=== PATIENT | female | born 1935 | race Caucasian/White ===

== ENCOUNTER 2018-11-30 11:56 | Inpatient (IN) | payer MEDICARE ==
[2018-11-30] MEDS ORDERED: BISA10SU11 RC (12:24)
[2018-11-30] MEDS ORDERED: POLY17PO4 PO (12:24)
[2018-11-30] MEDS ORDERED: FLUT16SP BNOSTRILS (12:24)
[2018-11-30] MEDS ORDERED: MAGN400O6 PO (12:24)
[2018-11-30] MEDS ORDERED: HYDR-4384 PO (12:24)
[2018-11-30] MEDS ORDERED: ACET-868 PO (12:24)
[2018-11-30] MEDS ORDERED: TAMS-12 PO (12:24)
[2018-11-30] MEDS ORDERED: CLON0.5T PO (12:24)
[2018-11-30] MEDS ORDERED: ANAS1TAB8 PO (12:24)
[2018-11-30] MEDS ORDERED: ISOS30TA6 PO (12:24)
[2018-11-30] MEDS ORDERED: IPRA3AMP23 IH (12:24)
[2018-11-30] MEDS ORDERED: SILD20TA2 PO (12:24)
[2018-11-30] MEDS ORDERED: APIX2.5T PO (12:24)
[2018-11-30] MEDS ORDERED: DOCU-141 PO (12:24)
[2018-11-30] MEDS ORDERED: FERR325T23 PO (12:24)
[2018-11-30] MEDS ORDERED: CARV3.122 PO (12:24)
[2018-11-30] MEDS ORDERED: LEVO88TA5 PO (12:24)
[2018-11-30] MEDS ORDERED: NA P133E RC (12:24)
[2018-11-30] MEDS ORDERED: NITR0.4T48 SL (12:24)
[2018-11-30] MEDS ORDERED: FOLI0.8T23 PO (12:24)
[2018-11-30] MEDS ORDERED: DICL100G16 TP (12:24)
[2018-11-30] MEDS ORDERED: TRAM50TA2 PO (12:24)
[2018-11-30] MEDS ORDERED: SODI88SP18 BNOSTRILS (12:24)
[2018-11-30] MEDS ORDERED: BUME1TAB34 PO (12:24)
[2018-11-30] MEDS ORDERED: HYDR-4076 PO (12:24)
[2018-11-30] MEDS ORDERED: HYDR-4354 PO (12:24)
[2018-11-30] MEDS ORDERED: ACETAMINOPHEN 325 MG TABLET PO PRN (14:00)
[2018-11-30] MEDS ORDERED: Z GUARD REMEDY 2 OZ OINT TP PRN (14:00)
[2018-11-30] MEDS ORDERED: ONDANSETRON HCL/PF 4 MG/2 ML VIAL IVP PRN (14:00)
[2018-11-30] MEDS ORDERED: ZOLPIDEM TARTRATE 5 MG TABLET PO PRN (14:00)
[2018-11-30] MEDS ORDERED: MAGNESIUM HYDROXIDE 30 ML UDC PO PRN ×2 (14:00→17:00)
[2018-11-30] MEDS ORDERED: HYDROCODONE/APAP 5/325MG 1 EACH TABLET PO PRN (14:00)
[2018-11-30] MEDS ORDERED: MAG HYDROX/AL HYDROX/SIMETH 30 ML UDC PO PRN (14:00)
[2018-11-30] MEDS ORDERED: NA PHOS,M-B/NA PHOS,DI-BA 1 EA ENEMA RC PRN (17:00)
[2018-11-30] MEDS ORDERED: NITROGLYCERIN 0.4 MG/TAB BOTTLE SL PRN (17:00)
[2018-11-30] MEDS ORDERED: TRAMADOL HCL 50 MG TABLET PO PRN (17:00)
[2018-11-30] MEDS ORDERED: hydrALAZINE HCL 25 MG TABLET PO PRN (17:00)
[2018-11-30] MEDS ORDERED: SALINE NASAL SPRAY 0.65% 1 BOTTLE BOTTLE NS PRN (17:00)
[2018-11-30] MEDS: DOCUSATE SODIUM 100 MG CAPSULE PO SCH (17:41)
[2018-11-30] MEDS: FERROUS SULFATE (325 MG) 325 MG/TAB TABLET PO SCH (17:41)
[2018-11-30] MEDS: CARVEDILOL 3.125 MG TABLET PO SCH (17:42)
[2018-11-30] MEDS ORDERED: FUROSEMIDE 40 MG/4 ML VIAL IV ONE (18:00)
[2018-11-30] MEDS: VIT B CMPLX 3/FA/VIT C/BIOTIN 1 TAB TABLET PO SCH (18:14)
[2018-11-30] MEDS ORDERED: IPRATROPIUM NEB FS 0.5 MG/2.5 ML AMPUL.NEB NEB SCH ×2 (18:30)
[2018-11-30] MEDS ORDERED: FLUTICASONE PROPIONATE 16 GM BOTTLE NS PRN (19:00)
[2018-11-30] MEDS: APIXABAN 2.5 MG TABLET PO SCH (19:12)
[2018-11-30] MEDS: SILDENAFIL CITRATE 20 MG TABLET PO SCH (20:11)
[2018-11-30] MEDS: clonazePAM 0.5 MG TABLET PO SCH (20:11)
[2018-11-30] MEDS ORDERED: ENOXAPARIN SODIUM 30 MG/0.3 ML DISP.SYRIN SQ SCH (21:00)
[2018-11-30] MEDS: TAMSULOSIN 0.4 MG CAP.SR.24H PO SCH (22:41)
[2018-12-01] MEDS: PANTOPRAZOLE 40 MG TABLET.DR PO SCH (08:17)
[2018-12-01] MEDS: LEVOTHYROXINE SODIUM 88 MCG TABLET PO SCH (08:17)
[2018-12-01] MEDS: BISACODYL SUPP (10 MG) 10 MG/SUPP.RECT SUPP.RECT RC SCH (08:18)
[2018-12-01] MEDS: FUROSEMIDE 40 MG/4 ML VIAL IV SCH (08:18)
[2018-12-01] MEDS: SILDENAFIL CITRATE 20 MG TABLET PO SCH ×3 (08:18→17:23)
[2018-12-01] MEDS: clonazePAM 0.5 MG TABLET PO SCH ×2 (08:18→21:12)
[2018-12-01] MEDS: POLYETHYLENE GLYCOL 3350 17 GM POWD.PACK PO SCH (08:19)
[2018-12-01] MEDS: ANASTROZOLE 1 MG TABLET PO SCH (08:19)
[2018-12-01] MEDS: ISOSORBIDE MONONITRATE (30MG) 30 MG TAB.SR.24H PO SCH (08:19)
[2018-12-01] MEDS: CARVEDILOL 3.125 MG TABLET PO SCH ×2 (08:19→17:24)
[2018-12-01] MEDS: APIXABAN 2.5 MG TABLET PO SCH ×2 (08:23→17:25)
[2018-12-01] MEDS: ALBUTEROL FS 2.5 MG/0.5 ML VIAL.NEB NEB SCH ×2 (11:27→20:19)
[2018-12-01] MEDS: IPRATROPIUM NEB FS 0.5 MG/2.5 ML AMPUL.NEB NEB SCH ×2 (11:27→20:19)
[2018-12-01] MEDS: FERROUS SULFATE (325 MG) 325 MG/TAB TABLET PO SCH (17:23)
[2018-12-01] MEDS: VIT B CMPLX 3/FA/VIT C/BIOTIN 1 TAB TABLET PO SCH (17:23)
[2018-12-01] MEDS: DOCUSATE SODIUM 100 MG CAPSULE PO SCH (17:23)
[2018-12-01] MEDS: CLOTRIMAZOLE 1% 15 GM TUBE TP SCH (20:49)
[2018-12-01] MEDS: TAMSULOSIN 0.4 MG CAP.SR.24H PO SCH (21:12)
[2018-12-01] MEDS: MUPIROCIN OINT 2% 22 GM TUBE SCH (21:12)
[2018-12-02] MEDS: CEPHALEXIN MONOHYDRATE 250 MG CAPSULE PO SCH ×4 (00:36→17:13)
[2018-12-02] MEDS: IPRATROPIUM NEB FS 0.5 MG/2.5 ML AMPUL.NEB NEB SCH ×2 (07:30→20:13)
[2018-12-02] MEDS: ALBUTEROL FS 2.5 MG/0.5 ML VIAL.NEB NEB SCH ×2 (07:30→20:13)
[2018-12-02] MEDS: LEVOTHYROXINE SODIUM 88 MCG TABLET PO SCH (07:53)
[2018-12-02] MEDS: PANTOPRAZOLE 40 MG TABLET.DR PO SCH (07:53)
[2018-12-02] MEDS: POLYETHYLENE GLYCOL 3350 17 GM POWD.PACK PO SCH (08:13)
[2018-12-02] MEDS: ISOSORBIDE MONONITRATE (30MG) 30 MG TAB.SR.24H PO SCH (08:14)
[2018-12-02] MEDS: BISACODYL SUPP (10 MG) 10 MG/SUPP.RECT SUPP.RECT RC SCH (08:15)
[2018-12-02] MEDS: SILDENAFIL CITRATE 20 MG TABLET PO SCH ×3 (08:15→17:14)
[2018-12-02] MEDS: clonazePAM 0.5 MG TABLET PO SCH ×2 (08:15→21:26)
[2018-12-02] MEDS: CARVEDILOL 3.125 MG TABLET PO SCH ×2 (08:16→17:00)
[2018-12-02] MEDS: ANASTROZOLE 1 MG TABLET PO SCH (08:16)
[2018-12-02] MEDS: FUROSEMIDE 40 MG/4 ML VIAL IV SCH (08:20)
[2018-12-02] MEDS: APIXABAN 2.5 MG TABLET PO SCH ×2 (08:26→17:15)
[2018-12-02] MEDS: MUPIROCIN OINT 2% 22 GM TUBE SCH ×2 (08:27→21:27)
[2018-12-02] MEDS: CLOTRIMAZOLE 1% 15 GM TUBE TP SCH ×2 (08:27→17:19)
[2018-12-02] MEDS: NEOMY SULF/BACITRAC ZN/POLY 15 GM TUBE TP SCH (12:53)
[2018-12-02] MEDS: DOCUSATE SODIUM 100 MG CAPSULE PO SCH (17:13)
[2018-12-02] MEDS: VIT B CMPLX 3/FA/VIT C/BIOTIN 1 TAB TABLET PO SCH (17:14)
[2018-12-02] MEDS: FERROUS SULFATE (325 MG) 325 MG/TAB TABLET PO SCH (17:14)
[2018-12-02] MEDS: TAMSULOSIN 0.4 MG CAP.SR.24H PO SCH (21:26)
[2018-12-03] MEDS: CEPHALEXIN MONOHYDRATE 250 MG CAPSULE PO SCH ×4 (00:16→17:42)
[2018-12-03] MEDS: ALBUTEROL FS 2.5 MG/0.5 ML VIAL.NEB NEB SCH ×2 (07:11→19:53)
[2018-12-03] MEDS: IPRATROPIUM NEB FS 0.5 MG/2.5 ML AMPUL.NEB NEB SCH ×2 (07:11→19:52)
[2018-12-03] MEDS: FUROSEMIDE 40 MG/4 ML VIAL IV SCH (08:19)
[2018-12-03] MEDS: LEVOTHYROXINE SODIUM 88 MCG TABLET PO SCH (08:19)
[2018-12-03] MEDS: clonazePAM 0.5 MG TABLET PO SCH ×2 (08:19→21:12)
[2018-12-03] MEDS: BISACODYL SUPP (10 MG) 10 MG/SUPP.RECT SUPP.RECT RC SCH (08:19)
[2018-12-03] MEDS: PANTOPRAZOLE 40 MG TABLET.DR PO SCH (08:20)
[2018-12-03] MEDS: ISOSORBIDE MONONITRATE (30MG) 30 MG TAB.SR.24H PO SCH (08:20)
[2018-12-03] MEDS: ANASTROZOLE 1 MG TABLET PO SCH (08:20)
[2018-12-03] MEDS: CARVEDILOL 3.125 MG TABLET PO SCH ×2 (08:20→17:00)
[2018-12-03] MEDS: POLYETHYLENE GLYCOL 3350 17 GM POWD.PACK PO SCH (08:20)
[2018-12-03] MEDS: SILDENAFIL CITRATE 20 MG TABLET PO SCH ×3 (08:23→17:42)
[2018-12-03] MEDS: CLOTRIMAZOLE 1% 15 GM TUBE TP SCH ×2 (08:27→17:44)
[2018-12-03] MEDS: NEOMY SULF/BACITRAC ZN/POLY 15 GM TUBE TP SCH (08:27)
[2018-12-03] MEDS: MUPIROCIN OINT 2% 22 GM TUBE SCH ×2 (08:28→21:13)
[2018-12-03] MEDS: APIXABAN 2.5 MG TABLET PO SCH (08:30)
[2018-12-03] MEDS ORDERED: NA PHOS,M-B/NA PHOS,DI-BA 1 EA ENEMA RC PRN (17:00)
[2018-12-03] MEDS: DOCUSATE SODIUM 100 MG CAPSULE PO SCH (17:42)
[2018-12-03] MEDS: VIT B CMPLX 3/FA/VIT C/BIOTIN 1 TAB TABLET PO SCH (17:42)
[2018-12-03] MEDS: TAMSULOSIN 0.4 MG CAP.SR.24H PO SCH (21:12)
[2018-12-03] MEDS ORDERED: POLYETHYLENE GLYCOL 3350 17 GM POWD.PACK PO SCH (22:00)
[2018-12-04] MEDS: CEPHALEXIN MONOHYDRATE 250 MG CAPSULE PO SCH ×3 (00:13→13:27)
[2018-12-04] MEDS: ALBUTEROL FS 2.5 MG/0.5 ML VIAL.NEB NEB SCH (08:02)
[2018-12-04] MEDS: IPRATROPIUM NEB FS 0.5 MG/2.5 ML AMPUL.NEB NEB SCH (08:02)
[2018-12-04] MEDS: LEVOTHYROXINE SODIUM 88 MCG TABLET PO SCH (08:34)
[2018-12-04] MEDS: POLYETHYLENE GLYCOL 3350 17 GM POWD.PACK PO SCH (08:34)
[2018-12-04] MEDS: BISACODYL SUPP (10 MG) 10 MG/SUPP.RECT SUPP.RECT RC SCH (08:34)
[2018-12-04] MEDS: PANTOPRAZOLE 40 MG TABLET.DR PO SCH (08:34)
[2018-12-04] MEDS: CARVEDILOL 3.125 MG TABLET PO SCH (08:35)
[2018-12-04] MEDS: SILDENAFIL CITRATE 20 MG TABLET PO SCH ×2 (08:35→13:29)
[2018-12-04] MEDS: ISOSORBIDE MONONITRATE (30MG) 30 MG TAB.SR.24H PO SCH (08:36)
[2018-12-04] MEDS: clonazePAM 0.5 MG TABLET PO SCH (08:36)
[2018-12-04] MEDS: MUPIROCIN OINT 2% 22 GM TUBE SCH (08:37)
[2018-12-04] MEDS: ANASTROZOLE 1 MG TABLET PO SCH (08:37)
[2018-12-04] MEDS: NEOMY SULF/BACITRAC ZN/POLY 15 GM TUBE TP SCH (08:38)
[2018-12-04] MEDS: CLOTRIMAZOLE 1% 15 GM TUBE TP SCH (08:38)
[2018-12-04] MEDS ORDERED: CLOT15CR35 TP (09:13)
== END 2018-12-04 15:20 | DRG 291 ==
DX: I13.0 Hypertensive heart and chronic kidney disease with heart failure and stage 1 through stage 4 chronic kidney disease, or unspecified chronic kidney disease (principal); I50.23 Acute on chronic systolic (congestive) heart failure; N17.0 Acute kidney failure with tubular necrosis; D68.59 Other primary thrombophilia; G93.40 Encephalopathy, unspecified; I47.2 Ventricular tachycardia; C79.9 Secondary malignant neoplasm of unspecified site; J44.9 Chronic obstructive pulmonary disease, unspecified; I42.0 Dilated cardiomyopathy; N18.9 Chronic kidney disease, unspecified; E03.9 Hypothyroidism, unspecified; E88.09 Other disorders of plasma-protein metabolism, not elsewhere classified; G31.84 Mild cognitive impairment of uncertain or unknown etiology; D72.819 Decreased white blood cell count, unspecified; I34.0 Nonrheumatic mitral (valve) insufficiency; Z95.0 Presence of cardiac pacemaker; I48.0 Paroxysmal atrial fibrillation; K59.09 Other constipation; I71.4 Abdominal aortic aneurysm, without rupture; L98.8 Other specified disorders of the skin and subcutaneous tissue; S00.31XA Abrasion of nose, initial encounter; X58.XXXA Exposure to other specified factors, initial encounter; Y93.9 Activity, unspecified; Y92.129 Unspecified place in nursing home as the place of occurrence of the external cause; Z17.0 Estrogen receptor positive status [ER+]; C50.612 Malignant neoplasm of axillary tail of left female breast